=== PATIENT | female | born 1990 | race Caucasian/White ===

== ENCOUNTER 2021-06-23 11:43 | Emergency (ER) | payer OTHER ==
[~2021-06-23] VITALS: Ht 170.2 cm; Wt 106.6 kg
[~2021-06-23 11:43] MED LIST: CLEOCIN300 MG PO; CLINORIL150 MG PO; MACROBID100 MG PO
[2021-06-23 14:11] LABS: BASOPHIL 0.8 % (0-2); HCT 42.6 % (37.0-47.0); HGB 14.1 g/dl (12.5-16.0); LYMPHOCYTE 26.1 % (15-48); MCH 29.3 pg (25.0-31.0); MCHC 33.1 g/dL (32.0-36.0); MCV 88.6 fL (78.0-100.0); MONOCYTE 7.1 % (0-12); MPV 10.3 fL (6.0-9.5); NEUTROPHIL 62.8 % (41-80); NRBC 0; PLT 297 K/uL (150-400); RBC 4.81 M/uL (4.20-5.40); RDW 12.2 % (11.5-14.0); WBC 9.6 K/uL (4.0-10.5)
[2021-06-23 14:30] LABS: BUN/CREAT RATIO (CALC) 12.5 RATIO; CREATININE 0.64 mg/dL (0.51-0.95); POTASSIUM 4.2 mmol/L (3.5-5.1)
[2021-06-23] MEDS ORDERED: AUGMENTIN 875-1 EACH PO (15:27)
== END 2021-06-23 15:43 | disposition home or self-care (01) ==
LOC: FER 11:43
PROVIDERS: Emergency Medicine
DX: K42.9 Umbilical hernia without obstruction or gangrene (principal); L02.216 Cutaneous abscess of umbilicus
CPT/HCPCS: 36415; 80048; 85025; Q9967